=== PATIENT | male | born 1955 | race Caucasian/White ===

== ENCOUNTER 2023-10-31 05:24 | Inpatient (IN) | payer OTHER, MEDICAID ==
[~2023-10-31] VITALS: Ht 177.8 cm; Wt 104.0 kg
[2023-10-31] VITALS (7 sets, daily range): BP systolic 112–166; PULSE 89–141; RESP 16–20; TEMP 98.4–103.1; O2SAT 94–98
[2023-10-31] MEDS ORDERED: POTA-197 PO (05:53)
[2023-10-31] MEDS ORDERED: LOPE2CAP PO (05:53)
[2023-10-31] MEDS ORDERED: VITD2000 PO (05:53)
[2023-10-31] MEDS ORDERED: MELA5TAB21 PO (05:53)
[2023-10-31] MEDS ORDERED: INSU100V7 SUBCUT (05:53)
[2023-10-31] MEDS ORDERED: LACO100T2 PO (05:53)
[2023-10-31] MEDS ORDERED: HYDR-3927 PO (05:53)
[2023-10-31] MEDS ORDERED: ACET250T28 PO (05:53)
[2023-10-31] MEDS ORDERED: INSU100V9 SQ (05:53)
[2023-10-31] MEDS ORDERED: POLY17PO44 PO (05:53)
[2023-10-31] MEDS ORDERED: FER300L PO (05:53)
[2023-10-31] MEDS ORDERED: ONDA-8 TL (05:53)
[2023-10-31] MEDS ORDERED: MULT-1117 PO (05:53)
[2023-10-31] MEDS ORDERED: CRAN450T9 PO (05:53)
[2023-10-31] MEDS ORDERED: APIX5TAB PO (05:53)
[2023-10-31] MEDS ORDERED: METO25TA3 PO (05:53)
[2023-10-31 06:20] LABS: BASOPHILS % (AUTO) 0.2 % (0.0-2.0); HEMATOCRIT 36.1 % (36-54); LYMPHOCYTES # (AUTO) 0.3 K/uL (1.0-5.5); LYMPHOCYTES % (AUTO) 2.2 % (20.5-51.5); MEAN CORPUSCULAR HEMOGLOBIN 27 pg (27-31); MEAN CORPUSCULAR HGB CONC 33 % (32-36); MEAN CORPUSCULAR VOLUME 83 fL (79.0-98.0); MONOCYTES # (AUTO) 0.8 K/uL (0.0-1.0); MONOCYTES % (AUTO) 5.5 % (1.7-9.3); NEUTROPHILS # (AUTO) 14.1 K/uL (1.8-7.7); NEUTROPHILS % (AUTO) 92.1 % (40.0-70.0); PLATELET COUNT (AUTO) 203 K/uL (130-430); RED BLOOD CELL COUNT(AUTO) 4.37 MIL/uL (4.2-6.2); RED CELL DISTRIBUTION WIDTH 15.8 % (9.0-15.0); WHITE BLOOD COUNT (AUTO) 15.3 K/uL (4.8-10.8)
[2023-10-31 06:31] LABS: INFLUENZA TYPE A Negative (NEGATIVE); INFLUENZA TYPE B NEGATIVE (NEGATIVE)
[2023-10-31 06:33] LABS: ALBUMIN 2.7 g/dL (3.4-4.8); ANION GAP 9 (5-15); ASPARTATE AMINOTRANSFERASE 17 U/L (10-37); CALCIUM 8.7 mg/dL (8.4-11.0); CARBON DIOXIDE 21 mmol/L (23-29); CHLORIDE 108 mmol/L (98-107); GLUCOSE 157 mg/dL (74-106); POTASSIUM 3.6 mmol/L (3.5-5.1); SODIUM SERUM 138 mmol/L (136-145); TOTAL BILIRUBIN 0.7 mg/dL (0.0-1.0); TOTAL PROTEIN, SERUM 6.5 g/dL (6.4-8.3); UREA NITROGEN, BLOOD 30 mg/dL (8-21)
[2023-10-31 06:35] LABS: BILIRUBIN,URINE NEGATIVE (NEGATIVE); BLOOD, URINE 3+ (NEGATIVE); CLARITY/URINE SL CLOUDY (CLEAR); COLOR,URINE YELLOW (YELLOW); GLUCOSE,URINE NEGATIVE (NEGATIVE); KETONES,URINE NEGATIVE (NEGATIVE); LEUKOCYTE ESTERASE ,URINE 2+ (NEGATIVE); NITRITE, URINE POSITIVE (NEGATIVE); PH,URINE 7.5 (5.0-8.0); PROTEIN URINE 2+ (NEGATIVE); UROBILINOGEN,URINE 0.2 (0.2-1.0)
[2023-10-31 06:35] LABS: BILIRUBIN,DIRECT 0.2 mg/dL (0.0-0.3)
[2023-10-31] MEDS: NACL 0.9% 1,000 ML IV ONE ×3 (06:37→08:23)
[2023-10-31] MEDS: ACETAMINOPHEN 500 MG TABLET PO ONE (06:38)
[2023-10-31 06:39] LABS: GFR AFRICAN AMERICAN 64 mL/min (>90); GFR NON AFRICAN-AMERICAN 53 mL/min (>90)
[2023-10-31 06:46] LABS: BACTERIA,URINE FEW /HPF (None Seen)
[2023-10-31 06:47] LABS: URINE AMORPHOUS PHOSPHATES 1+ /HPF (None Seen)
[2023-10-31 06:48] LABS: ALANINE AMINOTRANSFERASE 5 U/L (12-78)
[2023-10-31] MEDS ORDERED: NALOXONE HCL 0.4 MG/ML AMP (NARCAN) IVP PRN (09:30)
[2023-10-31] MEDS ORDERED: acetaZOLAMIDE 250 MG TABLET (DIAMOX) PO SCH (09:30)
[2023-10-31] MEDS: NACL 0.9% 1,000 ML IV SCH (09:45)
[2023-10-31] MEDS ORDERED: INSULIN REGULAR, HUMAN 100 UNITS/ML, 3 ML VIAL (humuLIN R) SUBCUT PRN (09:45)
[2023-10-31] MEDS: CEFEPIME 1 GM in D5W 50 ML IV SCH (11:35)
[2023-10-31] MEDS: 0.45% NACL 1,000 ML IV SCH (11:37)
[2023-10-31] MEDS: LIPASE/PROTEASE/AMYLASE 1 CAP PO SCH (11:50)
[2023-10-31] MEDS: AZITHROMYCIN 500 MG in NS 250 ML IV SCH (12:25)
[2023-10-31] MEDS: HYDROcodone/ACETAMIN 10-325 MG TAB PO PRN (12:36)
[2023-10-31] MEDS ORDERED: DIATR MEGLU/DIATRIZ SOD 30 ML SOLUTION PO ONE (13:56)
[2023-10-31] MEDS: LevALBUTEROL HCL 1.25 MG/0.5 ML *CONC.* VIAL.NEB (XOPENEX CONC.) INH SCH (15:40)
[2023-10-31] MEDS: METOPROLOL TARTRATE 50 MG TABLET PO ONE (17:48)
[2023-10-31] MEDS: MELATONIN 5 MG TABLET PO SCH (20:24)
[2023-10-31] MEDS: LACOSAMIDE 100 MG TABLET PO SCH (20:24)
[2023-10-31] MEDS: METOPROLOL SUCCINATE 25 MG TAB.SR.24H (TOPROL XL) PO SCH (20:30)
[2023-10-31] MEDS: INSULIN GLARGINE 100 UNITS/ML, 10 ML VIAL SQ SCH (20:32)
[2023-10-31] MEDS: APIXABAN 2.5 MG TABLET PO SCH (20:32)
[2023-10-31] MEDS ORDERED: NON-FORMULARY MEDICATION (Apixaban (Eliquis) 5 MG) PO SCH (21:00)
[2023-10-31] MEDS ORDERED: NON-FORMULARY MEDICATION (Cranberry Fruit (Cranberry) 450 MG) PO SCH (21:00)
[2023-10-31] MEDS ORDERED: POLYETHYLENE GLYCOL 3350, 17 GM/ POWD.PACK PO SCH (21:00)
[2023-10-31] MEDS ORDERED: NON-FORMULARY MEDICATION (Melatonin 5 MG) PO SCH (21:00)
[2023-10-31] MEDS ORDERED: GASTROGRAFIN 120 ML ONE (22:52)
[2023-11-01] VITALS (10 sets, daily range): BP systolic 128–154; PULSE 91–128; RESP 19–25; TEMP 98.9–99.7; O2SAT 93–99
[2023-11-01] MEDS ORDERED: ACETAMINOPHEN 500 MG TABLET PO PRN (04:00)
[2023-11-01] MEDS: ACETAMINOPHEN 325 MG TABLET PO PRN (04:08)
[2023-11-01 06:57] LABS: BASOPHILS % (AUTO) 0.1 % (0.0-2.0); HEMATOCRIT 33.2 % (36-54); HEMOGLOBIN 11.1 g/dL (14.0-18.0); LYMPHOCYTES # (AUTO) 0.3 K/uL (1.0-5.5); LYMPHOCYTES % (AUTO) 2.9 % (20.5-51.5); MEAN CORPUSCULAR HEMOGLOBIN 28 pg (27-31); MEAN CORPUSCULAR HGB CONC 34 % (32-36); MEAN CORPUSCULAR VOLUME 82 fL (79.0-98.0); MONOCYTES # (AUTO) 0.6 K/uL (0.0-1.0); MONOCYTES % (AUTO) 5.8 % (1.7-9.3); NEUTROPHILS # (AUTO) 9.9 K/uL (1.8-7.7); NEUTROPHILS % (AUTO) 91.2 % (40.0-70.0); PLATELET COUNT (AUTO) 161 K/uL (130-430); RED BLOOD CELL COUNT(AUTO) 4.02 MIL/uL (4.2-6.2); RED CELL DISTRIBUTION WIDTH 15.9 % (9.0-15.0); WHITE BLOOD COUNT (AUTO) 10.9 K/uL (4.8-10.8)
[2023-11-01 07:39] LABS: ALBUMIN 2.2 g/dL (3.4-4.8); CALCIUM 8.3 mg/dL (8.4-11.0); CREATININE 1.12 mg/dL (0.55-1.30); POTASSIUM 3.3 mmol/L (3.5-5.1); TOTAL BILIRUBIN 0.7 mg/dL (0.0-1.0); TOTAL PROTEIN, SERUM 5.8 g/dL (6.4-8.3)
[2023-11-01] MEDS ORDERED: LOPERAMIDE HCL 2 MG CAPSULE PO SCH (09:00)
[2023-11-01] MEDS ORDERED: FERROUS SULFATE 300 MG/5 ML UDC PO SCH (09:00)
[2023-11-01] MEDS: MULTIVITAMINS TAB 1 TABLET PO SCH (09:30)
[2023-11-01] MEDS: CHOLECALCIFEROL (VITAMIN D3) 2,000 UNIT TABLET PO SCH (09:30)
[2023-11-01] MEDS: POTASSIUM CHLORIDE 20 MEQ TABLET.ER PO SCH (09:31)
[2023-11-01] MEDS ORDERED: DIATR MEGLU/DIATRIZ SOD 30 ML SOLUTION PO ONE (09:41)
[2023-11-01] MEDS: METOPROLOL SUCCINATE 50 MG TAB.SR.24H (TOPROL XL) PO SCH (21:03)
[2023-11-01] MEDS: LevALBUTEROL HCL 1.25 MG/0.5 ML *CONC.* VIAL.NEB (XOPENEX CONC.) INH PRN (21:22)
[2023-11-02] VITALS (8 sets, daily range): BP systolic 101–137; PULSE 98–123; RESP 16–20; TEMP 97.2–98.2; O2SAT 95–98
[2023-11-02 06:41] LABS: BASOPHILS % (AUTO) 0.2 % (0.0-2.0); LYMPHOCYTES # (AUTO) 0.4 K/uL (1.0-5.5); LYMPHOCYTES % (AUTO) 4.3 % (20.5-51.5); MEAN CORPUSCULAR HEMOGLOBIN 27 pg (27-31); MEAN CORPUSCULAR HGB CONC 33 % (32-36); MEAN CORPUSCULAR VOLUME 82 fL (79.0-98.0); MONOCYTES # (AUTO) 1.2 K/uL (0.0-1.0); MONOCYTES % (AUTO) 12.1 % (1.7-9.3); NEUTROPHILS # (AUTO) 7.9 K/uL (1.8-7.7); NEUTROPHILS % (AUTO) 83.4 % (40.0-70.0); PLATELET COUNT (AUTO) 153 K/uL (130-430); RED BLOOD CELL COUNT(AUTO) 3.66 MIL/uL (4.2-6.2); RED CELL DISTRIBUTION WIDTH 15.4 % (9.0-15.0); WHITE BLOOD COUNT (AUTO) 9.5 K/uL (4.8-10.8)
[2023-11-02 06:48] LABS: ALBUMIN 1.7 g/dL (3.4-4.8); CREATININE 0.85 mg/dL (0.55-1.30); TOTAL BILIRUBIN 0.4 mg/dL (0.0-1.0); TOTAL PROTEIN, SERUM 4.7 g/dL (6.4-8.3)
[2023-11-02 07:14] LABS: POTASSIUM 2.7 mmol/L (3.5-5.1)
[2023-11-02 07:15] LABS: CALCIUM 6.8 mg/dL (8.4-11.0)
[2023-11-02] MEDS ORDERED: POTASSIUM CHLORIDE 20 MEQ/PKT PACKET PO ONE (13:45)
[2023-11-02] MEDS ORDERED: POTASSIUM CHLORIDE 40 MEQ in NS 250 ML IV ONE (14:30)
[2023-11-02] MEDS: KCL 40 mEq in 100 mL (PREMIX) 100 ML IV ONE (14:55)
[2023-11-02] MEDS: POTASSIUM CHLORIDE 20 MEQ TABLET.ER PO ONE (14:56)
[2023-11-02] MEDS: CALCIUM GLUC 1 GM/100ML-NACL 100 ML IV ONE (16:50)
[2023-11-03] VITALS (7 sets, daily range): BP systolic 101–123; PULSE 67–112; RESP 15–28; TEMP 97.3–97.9; O2SAT 96–99
[2023-11-03 14:25] LABS: BASOPHILS % (AUTO) 0.2 % (0.0-2.0); EOSINOPHILS % (AUTO) 0.2 % (0.0-4.0); HEMATOCRIT 34.4 % (36-54); HEMOGLOBIN 11.4 g/dL (14.0-18.0); LYMPHOCYTES % (AUTO) 8.4 % (20.5-51.5); MEAN CORPUSCULAR HEMOGLOBIN 27 pg (27-31); MEAN CORPUSCULAR HGB CONC 33 % (32-36); MEAN CORPUSCULAR VOLUME 82 fL (79.0-98.0); MONOCYTES # (AUTO) 1.4 K/uL (0.0-1.0); MONOCYTES % (AUTO) 12.2 % (1.7-9.3); NEUTROPHILS # (AUTO) 8.9 K/uL (1.8-7.7); PLATELET COUNT (AUTO) 225 K/uL (130-430); RED CELL DISTRIBUTION WIDTH 15.6 % (9.0-15.0); WHITE BLOOD COUNT (AUTO) 11.3 K/uL (4.8-10.8)
[2023-11-03 14:36] LABS: CALCIUM 8.3 mg/dL (8.4-11.0); CREATININE 1.2 mg/dL (0.55-1.30); POTASSIUM 4.2 mmol/L (3.5-5.1); TOTAL BILIRUBIN 0.5 mg/dL (0.0-1.0); TOTAL PROTEIN, SERUM 5.9 g/dL (6.4-8.3)
[2023-11-04] VITALS (8 sets, daily range): BP systolic 96–110; PULSE 77–100; RESP 18–19; TEMP 96.7–97.7; O2SAT 95–99
[2023-11-04 06:58] LABS: BASOPHILS % (AUTO) 0.5 % (0.0-2.0); EOSINOPHILS # (AUTO) 0.1 K/uL (0.0-0.4); EOSINOPHILS % (AUTO) 1.3 % (0.0-4.0); HEMATOCRIT 33.5 % (36-54); HEMOGLOBIN 11.2 g/dL (14.0-18.0); LYMPHOCYTES # (AUTO) 1.2 K/uL (1.0-5.5); LYMPHOCYTES % (AUTO) 12.3 % (20.5-51.5); MEAN CORPUSCULAR HEMOGLOBIN 27 pg (27-31); MEAN CORPUSCULAR HGB CONC 33 % (32-36); MEAN CORPUSCULAR VOLUME 82 fL (79.0-98.0); MONOCYTES # (AUTO) 1.1 K/uL (0.0-1.0); MONOCYTES % (AUTO) 11.4 % (1.7-9.3); NEUTROPHILS % (AUTO) 74.5 % (40.0-70.0); PLATELET COUNT (AUTO) 238 K/uL (130-430); RED BLOOD CELL COUNT(AUTO) 4.09 MIL/uL (4.2-6.2); RED CELL DISTRIBUTION WIDTH 16.1 % (9.0-15.0); WHITE BLOOD COUNT (AUTO) 9.4 K/uL (4.8-10.8)
[2023-11-04 07:26] LABS: ALBUMIN 1.9 g/dL (3.4-4.8); CALCIUM 8.6 mg/dL (8.4-11.0); CREATININE 1.07 mg/dL (0.55-1.30); POTASSIUM 3.9 mmol/L (3.5-5.1); TOTAL BILIRUBIN 0.4 mg/dL (0.0-1.0); TOTAL PROTEIN, SERUM 5.8 g/dL (6.4-8.3)
== END 2023-11-04 18:00 | DRG 871 ==
LOC: SED 05:24 → STU 07:07
PROVIDERS: ADMIT Family Medicine; ATTEND Family Medicine
DX: A41.50 Gram-negative sepsis, unspecified (principal); J18.9 Pneumonia, unspecified organism; N39.0 Urinary tract infection, site not specified; I48.20 Chronic atrial fibrillation, unspecified; I69.354 Hemiplegia and hemiparesis following cerebral infarction affecting left non-dominant side; E11.9 Type 2 diabetes mellitus without complications; I10 Essential (primary) hypertension; N31.9 Neuromuscular dysfunction of bladder, unspecified; Z20.822 Contact with and (suspected) exposure to COVID-19; R65.20 Severe sepsis without septic shock; Z88.0 Allergy status to penicillin; Z87.891 Personal history of nicotine dependence; Z85.841 Personal history of malignant neoplasm of brain
CPT/HCPCS: 36415; 70450-TC; 71045; 80048; 80053; 80076; 81000; 81001; 81015; 82948; 83605; 83735; 83880; 84484; 85025; 87040; 87081; 87086; 87186; 93005; 94070; 94640; 94760; 96365; 99285; G0378; J0456; J0692; J1815; J1956; J3480; J7050; J7060; J7612; Q9963; Q9964